=== PATIENT | male | born 1955 | race African-American/Black ===

== ENCOUNTER 2018-12-06 16:55 | Inpatient (IN) ==
--- NOTE | 2018-12-06 18:09 | ED ---
HPI General Chief complaint: Psychiatric Symptoms Stated complaint: Psych Eval/VCSO Time Seen by Provider: 12/06/18 17:49 Source: patient Mode of arrival: ambulatory Limitations: no limitations History of Present Illness HPI narrative: 63-year-old male presents to the emergency department complaining of confusion. He is brought under a Duncan act from a psychiatrist at the [facility]. Review of our records shows a history of schizoaffective disorder. No history is available from the patient. Records show that he has a history of Dewayne liver disease. He has a medication list from the [facility] showing lactulose, lisinopril, omeprazole, rifaximin, as well as risperidone Depakote. Otherwise history is very limited. Related Data Home Medications Medication Instructions Recorded Confirmed alfuzosin 10 mg PO DAILY 12/06/18 12/06/18 amlodipine 10 mg PO DAILY 12/06/18 12/06/18 aspirin 81 mg PO DAILY 12/06/18 12/06/18 benztropine 1 mg PO DAILY PRN 12/06/18 12/06/18 cyanocobalamin (vitamin B-12) 1,000 mcg PO DAILY 12/06/18 12/06/18 divalproex 500 mg PO DAILY 12/06/18 12/06/18 lactulose 30 g PO BID 12/06/18 12/06/18 lisinopril 5 mg PO DAILY 12/06/18 12/06/18 omeprazole 20 mg PO DAILY 12/06/18 12/06/18 oxybutynin chloride 5 mg PO DAILY 12/06/18 12/06/18 rifaximin 550 mg PO BID 12/06/18 12/06/18 risperidone 3 mg PO BID 12/06/18 12/06/18 Allergies Allergy/AdvReac Type Severity Reaction Status Date / Time haloperidol Allergy Unknown Extrapyramidal Unverified 12/06/18 17:12 Syndrome Review of Systems ROS Unobtainable ROS Unobtainable: unobtainable due to mental condition PMFSH Medical History Medical History Hepatic encephalopathy (Acute) Hypertension (Acute) Liver disease (Acute) Social History Social History Substance History: No History of Abuse Second Hand Smoke Exposure: No Smoking Status: Current every day smoker Tobacco Type: Cigarettes How Often Do You Have a Drink Containing Alcohol: 4 or more times a week Recent Travel in [facility] within the Last 8 Weeks: No Recent Out of Country Travel within the Last 8 Weeks: No Immunization History Tetanus Immunization: Unsure Exam Narrative Exam Narrative: GENERAL: 63-year-old man, well appearing, speaking gibberish, pleasant, nontoxic. SKIN: Focused skin assessment warm/dry. HEAD: Atraumatic. Normocephalic. EYES: Sclera little bit dusky, no more obvious icterus. ENT: No nasal bleeding or discharge. Mucous membranes pink and moist. NECK: Trachea midline. No JVD. CARDIOVASCULAR: Regular rate and rhythm. No murmur appreciated. RESPIRATORY: No accessory muscle use. Clear to auscultation. Breath sounds equal bilaterally. GASTROINTESTINAL: Abdomen soft, non-tender, nondistended. Hepatic and splenic margins not palpable. MUSCULOSKELETAL: No obvious deformities. No clubbing. No cyanosis. No edema. NEUROLOGICAL: Awake and alert. No obvious cranial nerve deficits. Motor grossly within normal limits. Speech is unintelligible most is on, but can speak clearly occasionally in short phrases. PSYCHIATRIC: Pleasant, disoriented and confused, no obvious hallucinations or delusions. Course Initial Documented Vital Signs Temperature 97.7 F 12/06/18 17:01 Pulse Rate 64 12/06/18 17:01 Respiratory Rate 18 12/06/18 17:01 Blood Pressure 168/77 H 12/06/18 17:01 Pulse Oximetry 100 12/06/18 17:01 Last Documented Vital Signs Temperature 97.7 F 12/06/18 17:01 Pulse Rate 64 12/06/18 17:01 Respiratory Rate 18 12/06/18 17:01 Blood Pressure 168/77 H 12/06/18 17:01 Pulse Oximetry 100 12/06/18 17:01 Medical Decision Making MDM Narrative Medical decision making narrative: 63-year-old man, history of schizoaffective disorder, medication record he has encephalopathy. Will check labs, including ammonia, Depakote, reassess. Medical Screen Exam Complete: Yes Emergency Medical Condition: Yes Discharge Plan Physicians Team ED Provider: Manuel Osei Rxs /Orders / Referrals /Forms Prescriptions: No Action cyanocobalamin (vitamin B-12) 1,000 mcg Tablet 1,000 mcg PO DAILY RF: 0 aspirin 81 mg Tablet,Delayed Release (Dr/Ec) 81 mg PO DAILY RF: 0 risperidone 3 mg Tablet 3 mg PO BID RF: 0 amlodipine 10 mg Tablet 10 mg PO DAILY RF: 0 divalproex 500 mg Tablet Extended Release 24 Hr 500 mg PO DAILY RF: 0 benztropine 1 mg Tablet 1 mg PO DAILY PRN (Reason: Extrapyramidal Effects/Symptoms) RF: 0 lisinopril 5 mg Tablet 5 mg PO DAILY RF: 0 oxybutynin chloride 5 mg Tablet 5 mg PO DAILY RF: 0 alfuzosin 10 mg Tablet Extended Release 24 Hr 10 mg PO DAILY RF: 0 lactulose 10 gram/15 mL Solution 30 g PO BID RF: 0 omeprazole 20 mg Tablet,Delayed Release (Dr/Ec) 20 mg PO DAILY RF: 0 rifaximin 550 mg Tablet 550 mg PO BID RF: 0 Status ED Status: With Doctor
[2018-12-06 18:42] LABS: Activated Partial Thrombo Time 22.6 sec (23.4-31.7)
[2018-12-06 18:45] LABS: Baso % (Auto) 0.2 % (0.0-2.0); Eos # (Auto) 0.1 th/mm3 (0.0-0.4); Eos % (Auto) 1.6 % (0.0-4.0); Hematocrit 36.1 % (39.0-51.0); Hemoglobin 11.8 gm/dL (13.0-17.0); Lymph # (Auto) 2.2 th/mm3 (1.0-4.8); Lymph % (Auto) 30.7 % (9.0-44.0); Mean Corpuscular HGB Conc 32.8 % (32.0-36.0); Mean Corpuscular Hemoglobin 27.2 pg (27.0-34.0); Mean Corpuscular Volume 83.2 fL (80.0-100.0); Mean Platelet Volume 8.8 fL (7.0-11.0); Mono # (Auto) 0.4 th/mm3 (0.0-0.9); Mono % (Auto) 6.3 % (0.0-8.0); Neut # (Auto) 4.4 th/mm3 (1.8-7.7); Neut % (Auto) 61.2 % (16.0-70.0); Platelet Count 223 th/mm3 (150-450); Red Blood Count 4.34 mil/mm3 (4.50-5.90); Red Cell Distribution Width 13.3 % (11.6-17.2); White Blood Count 7.1 th/mm3 (4.0-11.0)
[2018-12-06 18:51] LABS: Albumin 4.1 g/dL (3.4-5.0); Anion Gap 6 meq/L (5-15); Aspartate Aminotransferase 18 U/L (15-37); Blood Urea Nitrogen 24 mg/dL (7-18); Calcium 8.8 mg/dL (8.5-10.1); Carbon Dioxide 28.3 meq/L (21.0-32.0); Chloride 108 meq/L (98-107); Glomerular Filtration Rate 82 mL/min (>89); Glucose,Random 80 mg/dL (74-106); Potassium 3.9 meq/L (3.5-5.1); Sodium 142 meq/L (136-145)
[2018-12-06 18:52] LABS: Alanine Aminotransferase 25 U/L (12-78)
[2018-12-06 18:56] LABS: Alkaline Phosphatase 67 U/L (45-117); Total Protein 8.6 g/dL (6.4-8.2); Valproic Acid 8 mcg/mL (50-100)
[2018-12-06] MEDS ORDERED: Aluminum/Magnesium/Simethacone Susp 30 ML UDC PO PRN (22:11)
[2018-12-06] MEDS ORDERED: Ibuprofen 600 MG Tablet PO PRN (22:12)
--- NOTE | 2018-12-06 22:39 | ED ---
HPI - Psych - General Time Seen by Psych Provider: 10:15 Source: patient Mode of arrival: ambulatory Limitations: altered mental status - History of Present Illness MD complaint: altered mental status Onset (ago): unknown History of same: Yes Relieving factors: medication - General Chief Complaint: Psychiatric Symptoms Stated Complaint: Psych Eval/VCSO Time Seen by Provider: 12/06/18 17:49 - History of Present Illness HPI Narrative: This is a 63-year-old single, -H[place] male who presents under a Duncan act for disorganization and inability to care for himself. He is known to this facility and department with his last admission being October 27, 2017 to November 04, 2017. Reviewed electronic medical record, labs, discussed case with staff. Patient's valproic acid is noted to be low. Patient is seen in [address] in [facility]. He seems disorganized and his speech is extremely garbled. He is a poor historian and unable to answer questions. However, he has been pleasant with staff and had no behavioral disturbances while on the unit. He does appear to be internally stimulated. Patient was seen at the [facility], placed under a Duncan act and transferred to this facility for further evaluation. (Virginia Dorsey) - Related Data Home Medications Medication Instructions Recorded Confirmed alfuzosin 10 mg PO DAILY 12/06/18 12/06/18 amlodipine 10 mg PO DAILY 12/06/18 12/06/18 aspirin 81 mg PO DAILY 12/06/18 12/06/18 benztropine 1 mg PO DAILY PRN 12/06/18 12/06/18 cyanocobalamin (vitamin B-12) 1,000 mcg PO DAILY 12/06/18 12/06/18 divalproex 500 mg PO DAILY 12/06/18 12/06/18 lactulose 30 g PO BID 12/06/18 12/06/18 lisinopril 5 mg PO DAILY 12/06/18 12/06/18 omeprazole 20 mg PO DAILY 12/06/18 12/06/18 oxybutynin chloride 5 mg PO DAILY 12/06/18 12/06/18 rifaximin 550 mg PO BID 12/06/18 12/06/18 risperidone 3 mg PO BID 12/06/18 12/06/18 Allergies Allergy/AdvReac Type Severity Reaction Status Date / Time haloperidol Allergy Unknown Extrapyramidal Unverified 12/06/18 17:12 Syndrome Review of Systems All other systems reviewed negative except as stated in HPI PMFSH - History History Provided By: Patient - Medical History Medical History: Medical History (Last Reviewed 12/06/18 @ 22:35 by CHANO Mario) Hepatic encephalopathy Hypertension Liver disease - Tobacco History Second Hand Smoke Exposure: No Tobacco Use In Past 30 Days: Yes Smoking Status: Current every day smoker Tobacco Type: Cigarettes - Alcohol History How Often Do You Have a Drink Containing Alcohol: 4 or more times a week - Substance Use History Substance History: No History of Abuse - Travel History Recent Travel in the [place] Within the Last 8 Weeks: No Recent Travel Out of the Country Within the Last 8 Weeks: No - Immunization History Tetanus Immunization: Unsure Psychiatric History - Psychiatric History Psychiatric Treatment History: History of Psychiatric Treatment, History of Hospitalization in a Psychiatric Facility History of Inpatient Treatment: Yes Physical Exam - General Limitations: no limitations General appearance: alert - Head Head exam: atraumatic - Neurological Exam Neurological exam: Present: alert - Psychiatric Psychiatric exam: Present: other (Disorganized) - Expanded Psychiatric Exam Expanded psych exam: Present: responds to int stimuli Mental Status Examination Appearance: Disheveled Consciousness: Alert Orientation: Person Motor Activity: Normal gait Speech: Incoherent Language: Other (Difficult to assess) Fund of Knowledge: Inadequate Attention and Concentration: Inadequate Mood: Appropriate Affect: Appropriate Thought Process & Associations: Disorganized Thought Content: Other (Unable to assess) Hallucination Type: Other (Unable to assess) Insight: Poor Judgment: Poor Initial Documented Vital Signs Temperature 97.7 F 12/06/18 17:01 Pulse Rate 64 12/06/18 17:01 Respiratory Rate 18 12/06/18 17:01 Blood Pressure 168/77 H 12/06/18 17:01 Pulse Oximetry 100 12/06/18 17:01 Last Documented Vital Signs Temperature 97.7 F 12/06/18 17:01 Pulse Rate 64 12/06/18 17:01 Respiratory Rate 18 12/06/18 17:01 Blood Pressure 168/77 H 12/06/18 17:01 Pulse Oximetry 100 12/06/18 17:01 MDM - Psych - Diagnosis (1) Psychosis Code(s): F29 - Unspecified psychosis not due to a substance or known physiological condition Status: Acute - Differential Diagnosis Likely: acute psychosis, chronic schizophrenia - Lab Data Result diagrams: 12/06/18 18:17 12/06/18 18:17 - MDM Narrative Medical decision making narrative: Given the patient's extensive psychiatric history and his extreme disorganization is likely that he would be a danger to himself and is unable to provide care. Therefore, I have admitted him to a locked inpatient psychiatric unit for further evaluation and treatment as deemed necessary. As noted in the HPI his valproic acid level is subtherapeutic at 8. I was able to obtain consent from his mother, Jessie, to continue his psychotropic regimen as currently ordered. (Virginia Dorsey) - Lab Data Lab Results 12/06/18 12/06/18 12/06/18 Range/Units 18:17 18:17 18:17 WBC 7.1 (4.0-11.0) th/mm3 RBC 4.34 L (4.50-5.90) mil/mm3 Hgb 11.8 L (13.0-17.0) gm/dL Hct 36.1 L (39.0-51.0) % MCV 83.2 (80.0-100.0) fL MCH 27.2 (27.0-34.0) pg MCHC 32.8 (32.0-36.0) % RDW 13.3 (11.6-17.2) % Plt Count 223 (150-450) th/mm3 MPV 8.8 (7.0-11.0) fL Neut % (Auto) 61.2 (16.0-70.0) % Lymph % (Auto) 30.7 (9.0-44.0) % [place] % (Auto) 6.3 (0.0-8.0) % Eos % (Auto) 1.6 (0.0-4.0) % Baso % (Auto) 0.2 (0.0-2.0) % Neut # (Auto) 4.4 (1.8-7.7) th/mm3 Lymph # (Auto) 2.2 (1.0-4.8) th/mm3 [place] # (Auto) 0.4 (0.0-0.9) th/mm3 Eos # (Auto) 0.1 (0.0-0.4) th/mm3 Baso # (Auto) 0.0 (0.0-0.2) th/mm3 WBC Differential . Differential Comment Auto diff final PT 10.0 (9.8-11.6) sec INR 1.0 Ratio APTT 22.6 L (23.4-31.7) sec Sodium 142 (136-145) meq/L Potassium 3.9 (3.5-5.1) meq/L Chloride 108 H (98-107) meq/L Carbon Dioxide 28.3 (21.0-32.0) meq/L Anion Gap 6 (5-15) meq/L BUN 24 H (7-18) mg/dL Creatinine 1.09 (0.60-1.30) mg/dL Estimated GFR 82 L (>89) mL/min Random Glucose 80 (74-106) mg/dL Calcium 8.8 (8.5-10.1) mg/dL Magnesium 3.0 H (1.5-2.5) mg/dL Total Bilirubin 0.3 (0.2-1.0) mg/dL AST 18 (15-37) U/L ALT 25 (12-78) U/L Alkaline Phosphatase 67 (45-117) U/L Ammonia (11-32) mcmol/L Troponin I Less than 0.02 L (0.02-0.05) ng/mL Total Protein 8.6 H (6.4-8.2) g/dL Albumin 4.1 (3.4-5.0) g/dL Valproic Acid 8 L (50-100) mcg/mL 12/06/18 Range/Units 18:17 WBC (4.0-11.0) th/mm3 RBC (4.50-5.90) mil/mm3 Hgb (13.0-17.0) gm/dL Hct (39.0-51.0) % MCV (80.0-100.0) fL MCH (27.0-34.0) pg MCHC (32.0-36.0) % RDW (11.6-17.2) % Plt Count (150-450) th/mm3 MPV (7.0-11.0) fL Neut % (Auto) (16.0-70.0) % Lymph % (Auto) (9.0-44.0) % [place] % (Auto) (0.0-8.0) % Eos % (Auto) (0.0-4.0) % Baso % (Auto) (0.0-2.0) % Neut # (Auto) (1.8-7.7) th/mm3 Lymph # (Auto) (1.0-4.8) th/mm3 [place] # (Auto) (0.0-0.9) th/mm3 Eos # (Auto) (0.0-0.4) th/mm3 Baso # (Auto) (0.0-0.2) th/mm3 WBC Differential Differential Comment PT (9.8-11.6) sec INR Ratio APTT (23.4-31.7) sec Sodium (136-145) meq/L Potassium (3.5-5.1) meq/L Chloride (98-107) meq/L Carbon Dioxide (21.0-32.0) meq/L Anion Gap (5-15) meq/L BUN (7-18) mg/dL Creatinine (0.60-1.30) mg/dL Estimated GFR (>89) mL/min Random Glucose (74-106) mg/dL Calcium (8.5-10.1) mg/dL Magnesium (1.5-2.5) mg/dL Total Bilirubin (0.2-1.0) mg/dL AST (15-37) U/L ALT (12-78) U/L Alkaline Phosphatase (45-117) U/L Ammonia 29 (11-32) mcmol/L Troponin I (0.02-0.05) ng/mL Total Protein (6.4-8.2) g/dL Albumin (3.4-5.0) g/dL Valproic Acid (50-100) mcg/mL
[2018-12-07] MEDS: rifAXIMin 550 MG Tablet PO SCH ×2 (08:33→20:50)
[2018-12-07] MEDS: Divalproex 500 MG ER Tablet PO SCH (08:33)
[2018-12-07] MEDS: amLODIPine 10 MG Tablet PO SCH (08:33)
[2018-12-07] MEDS: LACTULOSE 30 GM PO SCH ×2 (08:33→20:52)
[2018-12-07] MEDS: Lisinopril 5 MG Tablet PO SCH (08:33)
[2018-12-07 08:38] LABS: Calcium 8.6 mg/dL (8.5-10.1); Carbon Dioxide 26.9 meq/L (21.0-32.0); Chol/HDL Ratio 3.28 Ratio; HDL Cholesterol 36.5 mg/dL (40.0-60.0); Potassium 5.8 meq/L (3.5-5.1)
[2018-12-07] MEDS ORDERED: ALFUZOSIN 10 MG PO SCH (09:00)
--- NOTE | 2018-12-07 12:12 | P.HPPSY ---
Provisional Diagnosis Admission Date: December 06, 2018 22:10 [place] I.: Schizoaffective disorder bipolar type Competence Certification of Person's Competence To Provide Express and Informed Consent I have personally examined Wendie Domingo, a person being served at [facility] on, December 07, 2018 1211. Express and informed consent means consent voluntarily given in writing, by a competent person, after sufficient explanation and disclosure of the subject matter involved to enable the person to make a knowing and willful decision without any element of force, fraud, deceit, duress, or other form of constraint or coercion. This person is 18 years of age or older, is not now known to be incompetent to consent to treatment with a guardian advocate, and does not have a health care surrogate or proxy currently making medical treatment decisions. I have found this person to be one of the following: [] Competent to provide express and informed consent, as defined above, for voluntary admission to this facility and is competent to provide express and informed consent for treatment. He/she has the consistent capacity to make well reasoned, willful, and knowing decisions concerning his or her medical or mental health treatment. The person fully and consistently understands the purpose of the admission for examination/placement and is fully capable of personally exercising all rights assured [place] [] Incompetent to provide express and informed consent to voluntary admission, and this is incompetent to provide express and informed consent to treatment. The person must be transferred to involuntary status and a petition for a guardian advocate filed with the Circuit Court. []xxxx Refusing to provide express and informed consent to voluntary admission but is competent to provide express and informed consent for treatment. The person must be discharged or transferred to involuntary status. Form shall be completed within 24 hours of a person's arrival at the receiving facility and filed in the clinical record of each person: 1. Admitted on a voluntary basis 2. Permitted to provide express and informed consent to his/her own treatment 3. Allowed to transfer from involuntary to voluntary status 4. Prior to permitting a person to consent to his or her own treatment after having been previously found incompetent to consent to treatment. History of Present Illness Capacity: Lacks capacity (Patient lacks capacity to sign for hospitalization patient has capacity to sign for medication and treatment) History of Present Illness: Patient is 63-year-old F Egyptian male well-known to us from multiple prior contacts most recently being 10/27 through 11/04/2017. Patient was discharged from the [facility] however at the present time he is living with his mother. Patient brought here from the [facility] in [facility] under [place] act signed by a leave this to both the dated 12/06 at 5 PM that document reviewed essentially states patient is unable to care for herself not able to dress self he is hallucinating he is not compliant to his meds he is yelling and screaming not responding to redirection he has poor insight and limited judgment he reports or taking illicit substances in any case he will be a danger to himself and others. Patient seen screen in the ED urine toxicology negative blood alcohol level negative Depakote level of 8 if the present time patient sitting quietly in his room nurse Trudy present throughout session patient is alert calm cooperative though speaks in a markedly difficult to understand mumbling voice. He states he is left the intermediate he was living again and now lives with his mother. This is been a fairly recent move. He denies medication noncompliance though it appears she has taken various doses of medication. He denies any alcohol or drug use with this. He denies suicidality and homicidality to me. He states he gets along okay with his mother. There is question about patient's compliance since he left the intermediate he does at times show some significant thought blocking with delayed responses. At this time patient does not meet criteria for involuntary psychiatric hospitalization of the [place] act I will do first opinion request second opinion. I feel he does have capacity to sign for his treatment and medication. Restart his medication for the med reconciliation. Recheck patient's Depakote blood level over in a few days. The be consideration of adding and in Still sustain a injection until he oral Resporal to verify placement for this gentleman also. - Inpatient Certification I certify that the inpatient services were ordered in accordance with Medicare regulations governing the order. This includes certification that hospital inpatient services are reasonable and necessary and in the case of services not specified as inpatient-only under 42 CFR 419.22(n), that they are appropriately provided as inpatient services in accordance to with the 2-midnight benchmark under 43 CFR 412.3(e) I certify that inpatient psychiatric hospital services are medically necessary. Evaluation and treatment and/or diagnostic testing are expected to improve the patient's condition. The patient needs on a daily basis, active treatment furnished directly by or requiring the supervision of inpatient psychiatric facility personnel. Estimated Total Length of Stay (Days): 7 Plans for Post Hospital Care: Not yet determined Review of Systems unobtainable due to mental status PMFSH - History History Provided By: Patient, Medical Record - Medical / Surgical Hx Neg / Unobtainable Medical Problems Denied: Unable to Obtain - Medical History Medical History: Medical History (Last Reviewed 12/07/18 @ 12:24 by Dewayne Peña MD) Hepatic encephalopathy Hypertension Liver disease - Social History I have reviewed the patient's Social History: Yes - Tobacco History Second Hand Smoke Exposure: Yes Tobacco Use In Past 30 Days: Yes Smoking Status: Current every day smoker Tobacco Type: Cigarettes - Alcohol History How Often Do You Have a Drink Containing Alcohol: Unable to Obtain - Substance Use History Substance History: No History of Abuse - Travel History Recent Travel in the USA Within the Last 8 Weeks: No Recent Travel Out of the Country Within the Last 8 Weeks: No - Immunization History Tetanus Immunization: Unsure Quality Measures - Psychiatric History Psychological trauma history: Difficult to determine due to patient's psychosis Violence risk to others in the last 6 months: Patient fairly agitated with [facility] outpatient Violence risk to self in the last 6 months: He made suicidal statements at the [facility] - Substance Abuse History Drug or alcohol use in the past 12 months: Patient denies - Patient Strengths Patient's strengths (minimum of 2): Patient verbal able [facility] Medications and Allergies Active Medications: Active Medications Al Hydrox/Mg Hydrox/Simethicone (Mag-Al Plus Susp Liq) 30 ml PO Q6H PRN PRN Reason: DYSPEPSIA Al Hydroxide/Mg Hydroxide (Milk Of Magnesia Liq) 30 ml PO Q12H PRN PRN Reason: Mild Constipation Amlodipine Besylate (Norvasc) 10 mg PO DAILY [facility] Last Admin: 12/07/18 08:33 Dose: 10 mg Aspirin (Ecotrin) 81 mg PO DAILY [facility] Last Admin: 12/07/18 08:33 Dose: 81 mg Benztropine Mesylate (Cogentin) 1 mg PO DAILY PRN PRN Reason: Extrapyramidal Effects/Symptoms Cyanocobalamin (Vitamin B12) 1,000 mcg PO DAILY [facility] Last Admin: 12/07/18 08:33 Dose: 1,000 mcg Diphenhydramine HCl (Benadryl) 50 mg PO HS PRN PRN Reason: INSOMNIA Divalproex Sodium (Depakote Er) 500 mg PO DAILY [facility] Last Admin: 12/07/18 08:33 Dose: 500 mg Hydroxyzine HCl (Atarax) 50 mg PO Q6H PRN PRN Reason: ANXIETY Ibuprofen (Motrin) 600 mg PO Q6HR PRN PRN Reason: PAIN SCALE 1 TO 10 Lisinopril (Prinivil) 5 mg PO DAILY [facility] Last Admin: 12/07/18 08:33 Dose: 5 mg Non-Formulary Medication (Alfuzosin [Alfuzosin]) 10 mg PO DAILY [facility] Last Admin: 12/07/18 08:33 Dose: Not Given Non-Formulary Medication (Lactulose [Lactulose]) 30 g PO BID [facility] Last Admin: 12/07/18 08:33 Dose: Not Given Non-Formulary Medication (Omeprazole [Omeprazole]) 20 mg PO DAILY [facility] Last Admin: 12/07/18 08:33 Dose: Not Given Oxybutynin Chloride (Ditropan) 5 mg PO DAILY [facility] Last Admin: 12/07/18 08:33 Dose: 5 mg Rifaximin (Xifaxan) 550 mg PO BID [facility] Last Admin: 12/07/18 08:33 Dose: 550 mg Risperidone (Risperdal) 3 mg PO BID [facility] Last Admin: 12/07/18 08:33 Dose: 3 mg Sodium Chloride (Ns Flush) 2 ml IV.FLUSH PRN PRN PRN Reason: FLUSH AFTER USING IV ACCESS Allergies Allergy/AdvReac Type Severity Reaction Status Date / Time haloperidol Allergy Unknown Extrapyramidal Verified 12/07/18 00:28 Syndrome Home Medications Medication Instructions Recorded Confirmed Type alfuzosin 10 mg PO DAILY 12/06/18 12/06/18 History amlodipine 10 mg PO DAILY 12/06/18 12/06/18 History aspirin 81 mg PO DAILY 12/06/18 12/06/18 History benztropine 1 mg PO DAILY PRN 12/06/18 12/06/18 History cyanocobalamin (vitamin B-12) 1,000 mcg PO DAILY 12/06/18 12/06/18 History divalproex 500 mg PO DAILY 12/06/18 12/06/18 History lactulose 30 g PO BID 12/06/18 12/06/18 History lisinopril 5 mg PO DAILY 12/06/18 12/06/18 History omeprazole 20 mg PO DAILY 12/06/18 12/06/18 History oxybutynin chloride 5 mg PO DAILY 12/06/18 12/06/18 History rifaximin 550 mg PO BID 12/06/18 12/06/18 History risperidone 3 mg PO BID 12/06/18 12/06/18 History Results - Labs CBC & Chem 7: 12/06/18 18:17 12/07/18 06:52 Labs: Laboratory Results - last 24 hr 12/06/18 12/06/18 12/06/18 18:17 18:17 18:17 WBC 7.1 RBC 4.34 L Hgb 11.8 L Hct 36.1 L MCV 83.2 MCH 27.2 MCHC 32.8 RDW 13.3 Plt Count 223 MPV 8.8 Neut % (Auto) 61.2 Lymph % (Auto) 30.7 [place] % (Auto) 6.3 Eos % (Auto) 1.6 Baso % (Auto) 0.2 Neut # (Auto) 4.4 Lymph # (Auto) 2.2 [place] # (Auto) 0.4 Eos # (Auto) 0.1 Baso # (Auto) 0.0 WBC Differential . Differential Comment Auto diff final PT 10.0 INR 1.0 APTT 22.6 L Sodium 142 Potassium 3.9 Chloride 108 H Carbon Dioxide 28.3 Anion Gap 6 BUN 24 H Creatinine 1.09 Estimated GFR 82 L Random Glucose 80 Calcium 8.8 Magnesium 3.0 H Total Bilirubin 0.3 AST 18 ALT 25 Alkaline Phosphatase 67 Ammonia Troponin I Less than 0.02 L Total Protein 8.6 H Albumin 4.1 Triglycerides Cholesterol LDL Cholesterol, Calc HDL Cholesterol Cholesterol/HDL Ratio Valproic Acid 8 L 12/06/18 12/07/18 18:17 06:52 WBC RBC Hgb Hct MCV MCH MCHC RDW Plt Count MPV Neut % (Auto) Lymph % (Auto) [place] % (Auto) Eos % (Auto) Baso % (Auto) Neut # (Auto) Lymph # (Auto) [place] # (Auto) Eos # (Auto) Baso # (Auto) WBC Differential Differential Comment PT INR APTT Sodium 141 Potassium 5.8 H D Chloride 107 Carbon Dioxide 26.9 Anion Gap 7 BUN 25 H Creatinine 1.04 Estimated GFR 87 L Random Glucose 68 L Calcium 8.6 Magnesium Total Bilirubin AST ALT Alkaline Phosphatase Ammonia 29 Troponin I Total Protein Albumin Triglycerides 74 Cholesterol 120 LDL Cholesterol, Calc 69 HDL Cholesterol 36.5 L Cholesterol/HDL Ratio 3.28 Valproic Acid Exam Vital signs: Vital Signs 12/06/18 17:01 12/07/18 05:49 Temperature 97.7 F 96.6 F L Pulse Rate 64 48 L Respiratory Rate 18 16 Blood Pressure 168/77 H 129/63 Pulse Oximetry 100 97 Intake & Output 12/06/18 12/07/18 12/07/18 18:59 06:59 18:59 Weight 113.398 kg 102.693 kg Other: Weight On Admission 102.693 kg Narrative: Patient is seen in his room with nurse Trudy, patient in no acute distress, patient no complaints of chest pain or abdominal pain, patient moving all 4 extremities but walks with a somewhat shuffling limping short paced slow gait Mental Status Examination Appearance: Disheveled Consciousness: Alert Orientation: Person, Place Motor Activity: Other (Patient limping shuffling gait) Speech: Incoherent, Speech impediment (Mumbling) Language: Adequate, Other (Difficult to assess) Fund of Knowledge: Inadequate Attention and Concentration: Inadequate Memory: Impaired Mood: Other (Somewhat restricted) Affect: Other (Decreased range and intensity) Thought Process & Associations: Disorganized Thought Content: Other (Unable to assess) Hallucination Type: None (Patient vaguely denies that appears to be responding to internal stimuli) Delusion Type: Paranoid Suicidal Ideation: Yes (Denies at this time) Suicidal Plan: Yes (Denies at this) Suicidal Intention: Yes (Denies at this) Homicidal Ideation: No Homicidal Plan: No Homicidal Intention: No Insight: Poor Judgment: Poor Assessment and Plan - Assessment (1) Schizoaffective disorder, bipolar type Code(s): F25.0 - Schizoaffective disorder, bipolar type Status: Acute - Plan Plan: Estimated LOS: [] days At this time patient meets criteria for involuntary psychiatric hospitalization of the [place] act I will do first opinion request second opinion. They feel he does have capacity to sign for treatment and medication. We will continue his medication for the med reconciliation check a Depakote blood level in a couple of days. We will adjust medications as necessary. Justification for Continued Inpatient Stay: At this time patient would decompensate placed in a lower level of care Discharge Planning: To be determined Request Healthcare Surrogate/Guardian Advocate?: No
[2018-12-07] MEDS: Pantoprazole Sodium 20 MG DR Tablet PO SCH (14:05)
--- NOTE | 2018-12-07 16:12 | ECG ---
Date Performed: 12/06/2018 Time Performed: 21:26:19 PTAGE: 63 years EKG: SINUS BRADYCARDIA WITH SINUS ARRHYTHMIA BORDERLINE ECG Since PREVIOUS TRACING , no significant change noted DOCTOR: Sandra Bell Interpretating Date/Time 12/07/2018 16:09:48
[2018-12-07 18:28] LABS: Hemoglobin A1c 5.9 % (4.3-6.0)
[2018-12-08] MEDS: Divalproex 500 MG ER Tablet PO SCH (08:51)
[2018-12-08] MEDS: Pantoprazole Sodium 20 MG DR Tablet PO SCH (08:51)
[2018-12-08] MEDS: amLODIPine 10 MG Tablet PO SCH (08:51)
[2018-12-08] MEDS: rifAXIMin 550 MG Tablet PO SCH ×2 (08:51→20:57)
[2018-12-08] MEDS: Lisinopril 5 MG Tablet PO SCH (09:18)
--- NOTE | 2018-12-08 11:29 | P.CONPSY ---
Provisional Diagnosis Admission Date: December 06, 2018 22:10 [place] I.: Schizoaffective disorder bipolar type History of Present Illness Service: Psychiatry Primary Care Provider: No Primary Care Physician History of Present Illness: HPI reviewed. Patient interviewed. Patient is aware that he is [facility] but is difficult to interview thoracal information. He seems distracted and has been wandering the halls at night talking to persons not present in a gravelly frightening voice that is ultimately because many patients to retire to the room early according to the night staff. Patient continues talking as he is eating his breakfast. I agree with first opinion patient does meet criteria for involuntary hospitalization. Review of Systems Unable to obtain PMFSH - History History Provided By: Patient, Medical Record - Medical / Surgical Hx Neg / Unobtainable Medical Problems Denied: Unable to Obtain - Medical History Medical History: Medical History (Last Reviewed 12/08/18 @ 08:52 by Iza Monzon, [facility]) Hepatic encephalopathy Hypertension Liver disease - Tobacco History Second Hand Smoke Exposure: Yes Tobacco Use In Past 30 Days: Yes Smoking Status: Current every day smoker Tobacco Type: Cigarettes - Alcohol History How Often Do You Have a Drink Containing Alcohol: Unable to Obtain - Substance Use History Substance History: No History of Abuse - Travel History Recent Travel in the [place] Within the Last 8 Weeks: No Recent Travel Out of the Country Within the Last 8 Weeks: No - Immunization History Tetanus Immunization: Unsure Medications and Allergies Active Medications: Active Medications Al Hydrox/Mg Hydrox/Simethicone (Mag-Al Plus Susp Liq) 30 ml PO Q6H PRN PRN Reason: DYSPEPSIA Al Hydroxide/Mg Hydroxide (Milk Of Magnesia Liq) 30 ml PO Q12H PRN PRN Reason: Mild Constipation Amlodipine Besylate (Norvasc) 10 mg PO DAILY [facility] Last Admin: 12/08/18 08:51 Dose: 10 mg Aspirin (Ecotrin) 81 mg PO DAILY [facility] Last Admin: 12/08/18 08:51 Dose: 81 mg Benztropine Mesylate (Cogentin) 1 mg PO DAILY PRN PRN Reason: Extrapyramidal Effects/Symptoms Cyanocobalamin (Vitamin B12) 1,000 mcg PO DAILY [facility] Last Admin: 12/08/18 08:51 Dose: 1,000 mcg Diphenhydramine HCl (Benadryl) 50 mg PO HS PRN PRN Reason: INSOMNIA Last Admin: 12/07/18 20:50 Dose: 50 mg Divalproex Sodium (Depakote Er) 500 mg PO DAILY [facility] Last Admin: 12/08/18 08:51 Dose: 500 mg Hydroxyzine HCl (Atarax) 50 mg PO Q6H PRN PRN Reason: ANXIETY Ibuprofen (Motrin) 600 mg PO Q6HR PRN PRN Reason: PAIN SCALE 1 TO 10 Last Admin: 12/07/18 20:50 Dose: 600 mg Lactulose (Lactulose Liq) 45 ml PO BID [facility] Lisinopril (Prinivil) 5 mg PO DAILY [facility] Last Admin: 12/08/18 09:18 Dose: 5 mg Oxybutynin Chloride (Ditropan) 5 mg PO DAILY [facility] Last Admin: 12/08/18 09:18 Dose: 5 mg Pantoprazole Sodium (Protonix) 20 mg PO DAILY [facility] Last Admin: 12/08/18 08:51 Dose: 20 mg Rifaximin (Xifaxan) 550 mg PO BID [facility] Last Admin: 12/08/18 08:51 Dose: 550 mg Risperidone (Risperdal) 3 mg PO BID [facility] Last Admin: 12/08/18 08:51 Dose: 3 mg Sodium Chloride (Ns Flush) 2 ml IV.FLUSH PRN PRN PRN Reason: FLUSH AFTER USING IV ACCESS Tamsulosin HCl (Flomax) 0.4 mg PO DAILY [facility] Last Admin: 12/08/18 08:51 Dose: 0.4 mg Allergies Allergy/AdvReac Type Severity Reaction Status Date / Time haloperidol Allergy Unknown Extrapyramidal Verified 12/07/18 00:28 Syndrome Home Medications Medication Instructions Recorded Confirmed Type alfuzosin 10 mg PO DAILY 12/06/18 12/06/18 History amlodipine 10 mg PO DAILY 12/06/18 12/06/18 History aspirin 81 mg PO DAILY 12/06/18 12/06/18 History benztropine 1 mg PO DAILY PRN 12/06/18 12/06/18 History cyanocobalamin (vitamin B-12) 1,000 mcg PO DAILY 12/06/18 12/06/18 History divalproex 500 mg PO DAILY 12/06/18 12/06/18 History lactulose 30 g PO BID 12/06/18 12/06/18 History lisinopril 5 mg PO DAILY 12/06/18 12/06/18 History omeprazole 20 mg PO DAILY 12/06/18 12/06/18 History oxybutynin chloride 5 mg PO DAILY 12/06/18 12/06/18 History rifaximin 550 mg PO BID 12/06/18 12/06/18 History risperidone 3 mg PO BID 12/06/18 12/06/18 History Exam Vital signs: Vital Signs 12/07/18 20:00 12/08/18 05:51 Temperature 97.4 F L Pulse Rate 60 Respiratory Rate 16 16 Blood Pressure 131/62 Pulse Oximetry 100 Mental Status Examination Appearance: Disheveled Consciousness: Alert Orientation: Person, Place Motor Activity: Other (Patient limping shuffling gait) Speech: Incoherent, Speech impediment (Mumbling) Language: Adequate, Other (Difficult to assess) Fund of Knowledge: Inadequate Attention and Concentration: Inadequate Memory: Impaired Mood: Other (Somewhat restricted) Affect: Other (Decreased range and intensity) Thought Process & Associations: Disorganized Thought Content: Other (Unable to assess) Hallucination Type: None (Patient vaguely denies that appears to be responding to internal stimuli) Delusion Type: Paranoid Suicidal Ideation: Yes (Denies at this time) Suicidal Plan: Yes (Denies at this) Suicidal Intention: Yes (Denies at this) Homicidal Ideation: No Homicidal Plan: No Homicidal Intention: No Insight: Poor Judgment: Poor Assessment and Plan - Assessment (1) Schizoaffective disorder, bipolar type Code(s): F25.0 - Schizoaffective disorder, bipolar type Status: Acute - Plan Plan: Estimated LOS: [] days At this time patient meets criteria for involuntary psychiatric hospitalization of the [place] act I will do first opinion request second opinion. They feel he does have capacity to sign for treatment and medication. We will continue his medication for the med reconciliation check a Depakote blood level in a couple of days. We will adjust medications as necessary. Justification for Continued Inpatient Stay: Patient is at risk for decompensation at a lower level of care Request Healthcare Surrogate/Guardian Advocate?: No
--- NOTE | 2018-12-08 12:38 | P.PNPSY ---
Subjective Remarks: Patient seen in his room with nurse Carlee, patient alert oriented calm cooperative. he is compliant with his medications with encouragement, chart reviewed, continues markedly gravelly voice. Patient denies ever taking Depakote, does not want to take Depakote says he has been compliant with his Resporal. For now we will Place Depakote on hold continue with the Resporal. At this time he does deny voices or visions does denies suicidality or homicidality. Dietitian's assessment reviewed and agreed with agree with the change in dietary orders also. Review of Systems All other systems reviewed negative except as stated in HPI Mental Status Examination Appearance: Appropriate Consciousness: Alert Orientation: Person, Place Motor Activity: Other (Patient limping shuffling gait) Speech: Incoherent, Speech impediment (Mumbling) Language: Adequate, Other (Difficult to assess) Fund of Knowledge: Inadequate Attention and Concentration: Inadequate Memory: Impaired Mood: Other (Somewhat restricted) Affect: Other (Decreased range and intensity) Thought Process & Associations: Disorganized Thought Content: Other (Unable to assess) Hallucination Type: None (Patient vaguely denies that appears to be responding to internal stimuli) Delusion Type: Paranoid Suicidal Ideation: Yes (Denies at this time) Suicidal Plan: Yes (Denies at this) Suicidal Intention: Yes (Denies at this) Homicidal Ideation: No Homicidal Plan: No Homicidal Intention: No Insight: Poor Judgment: Poor Assessment and Plan - Assessment (1) Schizoaffective disorder, bipolar type Code(s): F25.0 - Schizoaffective disorder, bipolar type Status: Acute - Plan Plan: Patient remains somewhat irritable paranoid manipulation with his medication needing encouragement for compliance with medication. See medication adjustments above Justification for Continued Inpatient Stay: At this time patient with decompensated placed in a lower level of care Discharge Planning: To be determined Request Healthcare Surrogate/Guardian Advocate?: No
[2018-12-09] MEDS: Pantoprazole Sodium 20 MG DR Tablet PO SCH (08:33)
[2018-12-09] MEDS: rifAXIMin 550 MG Tablet PO SCH ×2 (08:33→20:56)
[2018-12-09] MEDS: amLODIPine 10 MG Tablet PO SCH (08:33)
[2018-12-09] MEDS: Lisinopril 5 MG Tablet PO SCH (08:33)
--- NOTE | 2018-12-09 14:01 | P.PNPSY ---
Subjective Chief Complaint: Follow-up treatment of psychosis Remarks: Patient seen for follow-up, chart reviewed, patient discussed with nursing staff ; we reviewed the patient's mood, thoughts, and behaviors from overnight and this morning. Nurse reports patient slept 5 hours overnight but behavior on the unit has been cooperative and calm. He does seem confused at times and his speech is very garbled. Patient was seen sitting the day room eating lunch. He denied suicidal ideations and denies physical discomfort. He did seem to complain of his diet which is mechanical soft due to difficulty swallowing. Patient was difficult to understand he was offered a pad of paper to make requests or complaints but he declined and seem to indicate he was satisfied with his care. Mental Status Examination Appearance: Appropriate Consciousness: Alert Orientation: Person, Place, Situation Motor Activity: Other (Patient limping shuffling gait) Speech: Incoherent, Speech impediment (Mumbling) Language: Adequate, Other (Difficult to assess) Fund of Knowledge: Inadequate Attention and Concentration: Inadequate Memory: Impaired Mood: Other (Somewhat restricted) Affect: Other (Decreased range and intensity) Thought Process & Associations: Disorganized Thought Content: Other (Unable to assess) Hallucination Type: None (Patient vaguely denies that appears to be responding to internal stimuli) Delusion Type: Paranoid (No paranoia elicited today) Suicidal Ideation: Yes (Denies at this time) Suicidal Plan: Yes (Denies at this) Suicidal Intention: Yes (Denies at this) Homicidal Ideation: No Homicidal Plan: No Homicidal Intention: No Insight: Poor Judgment: Poor Assessment and Plan - Assessment (1) Schizoaffective disorder, bipolar type Code(s): F25.0 - Schizoaffective disorder, bipolar type Status: Acute - Plan Plan: December 08, 2018 patient remains somewhat irritable paranoid manipulation with his medication needing encouragement for compliance with medication. See medication adjustments above December 09, 2018: Fair response to treatment as the patient's behavior is calm cooperative but difficult to discern whether the patient is experiencing active hallucinations or paranoia due to the speech impediment. He declined to answer questions by written word. He indicated satisfaction with current medications. Continue inpatient psychiatric treatment and stabilization. Continue current medications unchanged. Discharge planning in process. Justification for Continued Inpatient Stay: Patient remains an elevated risk for self-harm by self neglect and will require further inpatient stabilization and preparation of a safe discharge plan. Moving patient to a less restrictive environment at this time may result in decompensation. Request Healthcare Surrogate/Guardian Advocate?: No
[2018-12-10] MEDS: rifAXIMin 550 MG Tablet PO SCH ×2 (08:38→21:51)
[2018-12-10] MEDS: Lisinopril 5 MG Tablet PO SCH (08:38)
[2018-12-10] MEDS: Pantoprazole Sodium 20 MG DR Tablet PO SCH (08:38)
[2018-12-10] MEDS: amLODIPine 10 MG Tablet PO SCH (08:41)
--- NOTE | 2018-12-10 14:36 | P.PNPSY ---
Subjective Chief Complaint: Follow-up treatment of psychosis Remarks: Patient seen for follow-up, chart reviewed, patient discussed with nursing staff ; we reviewed the patient's mood, thoughts, and behaviors from overnight and this morning. Nurse reports that the patient only had 4 hours of sleep. He continued to have garbled speech and seems confused at times. He is not adherent to dietary restrictions. He denies any suicidal or homicidal ideations. The patient was seen sitting quietly by himself in the day room. He reports that he actually slept pretty good and had no complaints. He did request that he be allowed to drink large juice but is on dietary restrictions due to difficulty swallowing. Mental Status Examination Appearance: Appropriate Consciousness: Alert Orientation: Person, Place, Situation Motor Activity: Other (Patient limping shuffling gait) Speech: Incoherent, Speech impediment (Mumbling) Language: Adequate, Other (Difficult to assess) Fund of Knowledge: Inadequate Attention and Concentration: Inadequate Memory: Impaired Mood: Other (Somewhat restricted) Affect: Other (Decreased range and intensity) Thought Process & Associations: Disorganized Thought Content: Other (Unable to assess) Hallucination Type: None (Patient vaguely denies that appears to be responding to internal stimuli) Delusion Type: Paranoid (No paranoia elicited today) Suicidal Ideation: No (Denies at this time) Suicidal Plan: No (Denies at this) Suicidal Intention: No (Denies at this) Homicidal Ideation: No Homicidal Plan: No Homicidal Intention: No Insight: Poor Judgment: Poor Assessment and Plan - Assessment (1) Schizoaffective disorder, bipolar type Code(s): F25.0 - Schizoaffective disorder, bipolar type Status: Acute - Plan Plan: December 08, 2018 patient remains somewhat irritable paranoid manipulation with his medication needing encouragement for compliance with medication. See medication adjustments above December 09, 2018: Fair response to treatment as the patient's behavior is calm cooperative but difficult to discern whether the patient is experiencing active hallucinations or paranoia due to the speech impediment. He declined to answer questions by written word. He indicated satisfaction with current medications. Continue inpatient psychiatric treatment and stabilization. Continue current medications unchanged. Discharge planning in process. December 10, 2018: Fair response to treatment, the patient is denying suicidal ideations and he denies any symptoms of hallucinations. He expressed satisfaction with current treatment other than his desire for more fruit and fruit juice. Continue inpatient psychiatric treatment stabilization. Continue current medications unchanged. Discharge planning in process. Justification for Continued Inpatient Stay: Patient remains an elevated risk for self-harm by self neglect and will require further inpatient stabilization and preparation of a safe discharge plan. Moving patient to a less restrictive environment at this time may result in decompensation. Request Healthcare Surrogate/Guardian Advocate?: No
--- NOTE | 2018-12-11 08:55 | P.TTN ---
- Patient Problems Problems: 1. Discharge planning 2. Medication compliance 3. Knowledge deficit 4. Lack of coping skills - Progress Toward Goals Provider Present: Dr. Gayle Peña Provider Input: 12/11/18 Patient confused, garbled speech, poor insight Nurse Input: 12/11/18 Patient is not adherent to dietary restrictions, Med compliant, confused Psychiatric Counselors Present: Marilyn Hirsch [facility] Psychiatric Therapist Input: 12/11/18 Patient presents confused med compliant, did not sleep well last night. not compliant with dietary restrictions. Continue to treat. Group Spec/RT/OT/DENNIS Present: JEANNIE Rangel Group Spec/RT/OT/DENNIS Input: 12/11/18 Patient refuses groups - Documentation Teaching Recipient: Patient
[2018-12-11] MEDS: rifAXIMin 550 MG Tablet PO SCH ×2 (10:43→20:18)
[2018-12-11] MEDS: amLODIPine 10 MG Tablet PO SCH (10:44)
[2018-12-11] MEDS: Lisinopril 5 MG Tablet PO SCH (10:44)
[2018-12-11] MEDS: Pantoprazole Sodium 20 MG DR Tablet PO SCH (10:44)
--- NOTE | 2018-12-11 12:42 | P.PNPSY ---
Subjective Chief Complaint: Follow-up treatment of psychosis Remarks: Patient is seen in day room with RN. Chart reviewed, patient compliant medication. Patient continues to mumble. Make it difficult at times to interpret his speech however it seems overall fairly well goal oriented. I talked about discharge planning patient states he has a girlfriend and a place to go to when he leaves here. Though [place] the possibility of a [facility]. We need to coordinate this to the counselor Review of Systems All other systems reviewed negative except as stated in HPI Mental Status Examination Appearance: Appropriate Consciousness: Alert Orientation: Person, Place, Situation Motor Activity: Other (Patient limping shuffling gait) Speech: Speech impediment (Mumbling) Language: Adequate, Other (Difficult to assess) Fund of Knowledge: Inadequate Attention and Concentration: Inadequate Memory: Impaired Mood: Other (Somewhat restricted) Affect: Other (Decreased range and intensity) Thought Process & Associations: Disorganized Thought Content: Other (Unable to assess) Hallucination Type: None (Patient vaguely denies that appears to be responding to internal stimuli) Delusion Type: Paranoid (No paranoia elicited today) Suicidal Ideation: No (Denies at this time) Suicidal Plan: No (Denies at this) Suicidal Intention: No (Denies at this) Homicidal Ideation: No Homicidal Plan: No Homicidal Intention: No Insight: Poor Judgment: Poor Assessment and Plan - Assessment (1) Schizoaffective disorder, bipolar type Code(s): F25.0 - Schizoaffective disorder, bipolar type Status: Acute - Plan Plan: December 08, 2018 patient remains somewhat irritable paranoid manipulation with his medication needing encouragement for compliance with medication. See medication adjustments above December 09, 2018: Fair response to treatment as the patient's behavior is calm cooperative but difficult to discern whether the patient is experiencing active hallucinations or paranoia due to the speech impediment. He declined to answer questions by written word. He indicated satisfaction with current medications. Continue inpatient psychiatric treatment and stabilization. Continue current medications unchanged. Discharge planning in process. December 10, 2018: Fair response to treatment, the patient is denying suicidal ideations and he denies any symptoms of hallucinations. He expressed satisfaction with current treatment other than his desire for more fruit and fruit juice. Continue inpatient psychiatric treatment stabilization. Continue current medications unchanged. Discharge planning in process. 12/11/2018 Patient seen today in the [facility] with RN. Compliant medications, chart reviewed, we will continue to work with placement issues. The patient continues to feel that he has a girlfriend in a home to return to when discharged. We need the counselor to help investigate this. Continues to mumble his speech but overall interpretable for now continue treatment no change Justification for Continued Inpatient Stay: At this time patient with decompensated placed in a lower level of care Discharge Planning: To be determined Request Healthcare Surrogate/Guardian Advocate?: No
[2018-12-12] MEDS: Pantoprazole Sodium 20 MG DR Tablet PO SCH (09:14)
[2018-12-12] MEDS: rifAXIMin 550 MG Tablet PO SCH ×2 (09:15→20:13)
[2018-12-12] MEDS: Lisinopril 5 MG Tablet PO SCH (09:15)
[2018-12-12] MEDS: amLODIPine 10 MG Tablet PO SCH (09:15)
--- NOTE | 2018-12-12 14:45 | P.PNPSY ---
Subjective Chief Complaint: Follow-up treatment of psychosis Remarks: Patient is seen today on 2500 with nurse and counselor Eva, chart reviewed, patient compliant medications. Patient showed some resistance to the transfer from 2600 2500 but was able to be redirected without too much difficulty. Staff is also talked to patient's mother who is about 90 years of age appears to have her cognitive abilities intact. She wants to have her some home with her. Oniel does wish to go home. At this time he is also been assigned to an intensive [place] outpatient program. Which we will give him monitoring and staff into his home. Thus will consider discharge the patient tomorrow to his home with his mother for follow-up of the [place] outpatient clinic Review of Systems All other systems reviewed negative except as stated in HPI Mental Status Examination Appearance: Appropriate Consciousness: Alert Orientation: Person, Place, Situation Motor Activity: Other (Patient limping shuffling gait) Speech: Speech impediment (Mumbling improved today) Language: Adequate, Other (Difficult to assess) Fund of Knowledge: Inadequate Attention and Concentration: Inadequate (Improved) Memory: Impaired Mood: Other (Euthymic to slightly restricted) Affect: Other (Good range and intensity) Thought Process & Associations: Disorganized (Improved organization) Thought Content: Appropriate, Ideas of reference (Mild) Hallucination Type: None (Patient vaguely denies that appears to be responding to internal stimuli) Delusion Type: None Suicidal Ideation: No (Denies at this time) Suicidal Plan: No (Denies at this) Suicidal Intention: No (Denies at this) Homicidal Ideation: No Homicidal Plan: No Homicidal Intention: No Insight: Fair Judgment: Poor Assessment and Plan - Assessment (1) Schizoaffective disorder, bipolar type Code(s): F25.0 - Schizoaffective disorder, bipolar type Status: Acute - Plan Plan: Patient continues to improve. If he continues will consider discharge tomorrow to his mother with implementation [facility] the [facility] Justification for Continued Inpatient Stay: At this time patient with decompensated placed in a lower level of care Discharge Planning: Return home with mother with outpatient [facility] program Request Healthcare Surrogate/Guardian Advocate?: No
[2018-12-13 05:35] VITALS: BP 126/58; PULSE 62; RESP 16; TEMP 98.9; O2SAT 99
[2018-12-13] MEDS: Lisinopril 5 MG Tablet PO SCH (08:35)
[2018-12-13] MEDS: Pantoprazole Sodium 20 MG DR Tablet PO SCH (08:35)
[2018-12-13] MEDS: rifAXIMin 550 MG Tablet PO SCH (08:35)
[2018-12-13] MEDS: amLODIPine 10 MG Tablet PO SCH (08:35)
--- NOTE | 2018-12-13 11:00 | P.DSPSY ---
Psychiatry Discharge Summary Inpatient Psychiatric care?: Yes Advance Directives: No Reason for Unknown:: Due to Patient Condition Mental Health Advance Directive: Unknown Health Care Proxy: Unknown Health Care Proxy Name: Cesar Salas Health Care Proxy [phone] - Admission Admission Date: December 06, 2018 22:10 - Admission Diagnosis (1) Schizoaffective disorder, bipolar type Code(s): F25.0 - Schizoaffective disorder, bipolar type Brief History: Patient is 63-year-old F [place]ian male well-known to us from multiple prior contacts most recently being 10/27 through 11/04/2017. Patient was discharged from the [facility] however at the present time he is living with his mother. Patient brought here from the [place] [facility] in [facility] under [place] act signed by a leave this to both the dated 12/06 at 5 PM that document reviewed essentially states patient is unable to care for herself not able to dress self he is hallucinating he is not compliant to his meds he is yelling and screaming not responding to redirection he has poor insight and limited judgment he reports or taking illicit substances in any case he will be a danger to himself and others. Patient seen screen in the ED urine toxicology negative blood alcohol level negative Depakote level of 8 if the present time patient sitting quietly in his room nurse Yates present throughout session patient is alert calm cooperative though speaks in a markedly difficult to understand mumbling voice. He states he is left the [facility] he was living again and now lives with his mother. This is been a fairly recent move. He denies medication noncompliance though it appears she has taken various doses of medication. He denies any alcohol or drug use with this. He denies suicidality and homicidality to me. He states he gets along okay with his mother. There is question about patient's compliance since he left the [facility] he does at times show some significant thought blocking with delayed responses. At this time patient does not meet criteria for involuntary psychiatric hospitalization of the [place] act I will do first opinion request second opinion. I feel he does have capacity to sign for his treatment and medication. Restart his medication for the med reconciliation. Recheck patient's Depakote blood level over in a few days. The be consideration of adding and in Still sustain a injection until he oral Resporal to verify placement for this gentleman also. Tobacco Use In Past 30 Days: Yes How Often Do You Have a Drink Containing Alcohol: Unable to Obtain Hospital Course: Patient had no significant problems from day of admission, he did show some resistance to accepting the medications as offered however with encouragement and some negotiation with him became compliant with medications, he showed no behavioral problems, the paranoia psychotic features slowly resolved. At this time he denies suicidality homicidality voices or visions. At this time patient 's mother is willing to have her return home with her. Patient is a client with the [place] [facility] here in [facility] he has been accepted in their [facility] program. Thus [facility] will [facility] with [facility] times 1 month to follow-up through the [place] [facility] which includes home health care - Discharge Discharge Date: 12/13/18 - Discharge Diagnosis (1) Schizoaffective disorder, bipolar type Code(s): F25.0 - Schizoaffective disorder, bipolar type Status: Acute Discharge Disposition: Home - Discharge Instructions Discharge Diet: Regular Diet Activities You Can Perform: Regular- No Restrictions - Discharge Time > 30 minutes Mental Status Examination Appearance: Appropriate Consciousness: Alert Orientation: Person, Place, Situation Motor Activity: Other (Patient limping shuffling gait) Speech: Speech impediment (Mumbling improved today) Language: Adequate, Other (Difficult to assess) Fund of Knowledge: Inadequate Attention and Concentration: Inadequate (Improved) Memory: Impaired Mood: Other (Euthymic to slightly restricted) Affect: Other (Good range and intensity) Thought Process & Associations: Disorganized (Improved organization) Thought Content: Appropriate, Ideas of reference (Mild) Hallucination Type: None (Patient vaguely denies that appears to be responding to internal stimuli) Delusion Type: None Suicidal Ideation: No (Denies at this time) Suicidal Plan: No (Denies at this) Suicidal Intention: No (Denies at this) Homicidal Ideation: No Homicidal Plan: No Homicidal Intention: No Insight: Fair Judgment: Poor Discharge/Advance Care Plan - Results Vital Signs: Last Vital Signs Temp 98.9 F 12/13/18 05:34 Pulse 62 12/13/18 05:34 Resp 16 12/13/18 05:34 BP 126/58 L 12/13/18 05:34 Pulse Ox 99 12/13/18 05:34 Lab Results: Laboratory Results Hemoglobin A1c 5.9 % (4.3-6.0) 12/07/18 06:52 Triglycerides 74 mg/dL (42-150) 12/07/18 06:52 Cholesterol 120 mg/dL (120-200) 12/07/18 06:52 LDL Cholesterol, Calc 69 mg/dL (0-99) 12/07/18 06:52 HDL Cholesterol 36.5 mg/dL (40.0-60.0) L 12/07/18 06:52 Valproic Acid 8 mcg/mL (50-100) L 12/06/18 18:17 Summary of Procedures: None done Pending Results: None - Medications Number of antipsychotic medications at discharge: 1 - Discharge Care Plan Goals to Promote Your Health: * To prevent worsening of your condition and complications * To maintain your health at the optimal level Directions to Meet Your Goals: Take your medications as prescribed Follow your dietary instruction Follow activity as directed Keep your appointments as scheduled Take your immunizations and boosters as scheduled If your symptoms worsen call your PCP, if no PCP go to Urgent Care Center or Emergency Room For 09/05 questions related to your inpatient stay or results of tests pending at discharge, please contact Dr. Dewayne Peña MD at Smoking is Dangerous to Your Health. Avoid second hand smoking
== END 2018-12-13 14:30 | disposition home or self-care (01) | DRG 885 ==
LOC: NEPJ 16:55 → NEDA 22:10 → H260 12-07 00:12 → H250 12-12 11:16
PROVIDERS: ADMIT Psychiatry & Neurology Psychiatry; ATTEND Psychiatry & Neurology Psychiatry
CPT/HCPCS: 80048; 80053; 80061; 80164; 82140; 82948; 82962; 83036; 83735; 84484; 85025; 85610; 85730; 92526; 92610; 93005; 99285; G0195; Q0163